=== PATIENT | female | born 1955 | race Hispanic/Latino ===

== ENCOUNTER 2025-02-28 14:14 | Emergency (ER) | payer OTHER, SELFPAY ==
[2025-02-28 14:18] VITALS: BP 210/76
[2025-02-28 14:42] LABS: Hematocrit 40.4 % (37.0-47.0); Hemoglobin 13.1 g/dL (12.0-16.0); Mean Corp Hgb Conc. 32.4 g/dL (33.0-37.0); Mean Corpuscular Volume 85.6 fL (81.0-99.0); Nucleated Red Blood Cells % 0 %; Platelet Count 261 10^3/uL (130-400); Red Cell Dist. Width 12.8 % (11.5-14.5)
[2025-02-28 15:11] LABS: ALT (SGPT) 32 U/L (0-35); AST (SGOT) 36 U/L (14-36); Albumin 4.2 g/dl (3.5-5.0); Alkaline Phosphatase 104 U/L (38-126); Blood Urea Nitrogen 17 mg/dl (7-17); Calcium 9.4 mg/dl (8.4-10.2); Carbon Dioxide 28 mmol/L (22-30); Chloride 108 mmol/L (98-107); Glucose 141 mg/dl (70-99); Potassium 4.9 mmol/L (3.5-5.1); Sodium 141 mmol/L (135-145); Total Protein 7.5 g/dl (6.3-8.2); eGFR > 60.00
[2025-02-28 16:09] VITALS: BP 149/83
--- NOTE | 2025-02-28 17:02 | ED.GENMED ---
History of Present Illness
General
Chief Complaint: Blood Pressure Problem
Source: patient
Exam Limitations: none
Time Seen by Provider: 02/28/25 16:08
Nursing documentation reviewed up to this point in time: agreed with
History of Present Illness
History of Present Illness:
69-year-old female past medical history of previous stroke hypertension hyperlipidemia, diabetes presenting to the emergency department today with concerns of elevated blood pressure. Went to get an eye procedure done was found to have an elevated
blood pressure. She was primary care doctor and also had elevated blood pressure as well as T wave changes on EKG. Was then sent to the ER for further assessment she denies chest pain shortness of breath nausea vomiting at any point. Had a very
mild headache this morning. Has been taking her hydralazine and lisinopril as prescribed.
Review of Systems
Review of Systems
Allergies reviewed?: Yes
All Other Systems: ROS reviewed and negative except as documented in HPI and ROS
Phy Exam
Physical Exam
Physical Exam:
GENERAL: Alert , in no apparent distress
EYE: pupils equal and reactive
NECK: Supple, no significant adenopathy.
ENT: o/p clr, mmm.
CARDIAC: Regular rate and rhythm .
LUNGS: Clear breath sounds bilaterally, no acute respiratory distress, no wheezes/rales/rhonchi
ABDOMEN: Soft, without focal tenderness, no r/g, no cvat
NEUROLOGICAL: Alert and oriented, no focal neuro deficits 5 out of 5 upper and lower extremity strength normal sensation with palpating bilaterally normal finger-nose and [id number] no pronator drift
SKIN: Warm and dry, skin intact.
MUSCULOSKELETAL: No edema, well perfused.
PSYCH: Normal and appropriate interaction.
Course
Orders/Labs/Results
Orders:
Orders
02/28/25 14:25
EKG [Electrocardiogram (*1)] Urgent
Reason for Study: Hypertension, Benign
EKG- Treatment ONCE
02/28/25 14:32
CBC/With Diff [Complete Blood Count/With Diff] Urgent
CMP [Comprehensive Metabolic Panel] Urgent
02/28/25 16:44
Troponin I Urgent
Abnormal Lab Results
02/28/25
14:32
MCHC 32.4 L g/dL
(33.0-37.0)
Chloride 108 H mmol/L
(98-107)
Glucose 141 H mg/dl
(70-99)
02/28/25 14:32
02/28/25 14:32
Vital Signs
Initial and Last Documented VS:
Initial Vital Signs
Temp Pulse Resp BP Pulse Ox
97.9 F 53 15 210/76 99
02/28/25 14:18 02/28/25 14:18 02/28/25 14:18 02/28/25 14:18 02/28/25 14:18
Last Documented Vital Signs
Temp Pulse Resp BP Pulse Ox
97.9 F 79 30 149/83 99
02/28/25 14:18 02/28/25 16:09 02/28/25 16:09 02/28/25 16:09 02/28/25 17:03
MDM/Problems Addressed
MDM/Problems Addressed:
69-year-old female presenting to the emergency department today with concerns of elevated blood pressure. No chest pain shortness of breath nausea vomiting numbness weakness or diaphoresis at any point today. Does take hydralazine and lisinopril.
Blood pressure improved by the time that I saw the patient. Blood pressure in the 140s over 80s. Due to the EKG changes troponin was ordered. EKG is nonspecific with some T wave flattening but no obvious ischemic changes. Patient without
symptoms throughout ER stay. No signs of significant arrhythmia. Troponin was obtained which was normal to ensure nonspecific T wave changes did not represent acute changes. She was otherwise advised for close outpatient follow-up for blood
pressure control. Return precautions given.
*Pulse Oximetry
SaO2: 99
Oxygen Mode of Delivery: Room air
Patient hypoxic: no (99)
*Critical Care Note
Total Time (30-74mins, 75-104mins- exclusive of procedures): Not Applicable
ED Attending Note
-
Portions of this chart may have been created with voice recognition software.� Occasional wrong word or��sound alike� substitutions may have occurred due to the inherent limitations of voice recognition software.
Discharge Plan
Departure
Patient Disposition: Home (Routine Discharge)
Patient with high blood pressure during this ER visit?: Yes
Condition: Good
Covid-19: Not Applicable
Discharge Problem:
BP (high blood pressure)
Instructions: High Blood Pressure (DC)
Activity Restrictions/Additional Instructions:
You came to the emergency department today with concerns of high blood pressure. Here you had a reassuring assessment. Please follow close with the primary care doctor to have this monitored closely and potentially start new medications. Return
for any worsening, new or concerning symptoms.
Interventions
Interventions:
*Risk Screen - Suicide Last Done: 02/28/25 14:18
*General Assessment Last Done: 02/28/25 14:18
*Neglect/Abuse Screening Last Done: 02/28/25 14:18
*ED COVID-19 Vaccine History Last Done: 02/28/25 14:18
*Nursing Disposition Last Done: 02/28/25 14:15
ED- Cardiac Assessment Last Done: 02/28/25 16:00
ED- Neurological Assessment Last Done: 02/28/25 16:00
ED- Pulmonary Assessment Last Done: 02/28/25 16:00
Discharge Date and Time
Print Language: ISRAELI
[2025-02-28 17:24] LABS: Troponin I < 0.012 ng/ml
== END 2025-02-28 18:24 | disposition home or self-care (01) ==
LOC: EMR 14:14
PROVIDERS: Emergency Medicine; Physician Assistant; EMERGENCY PHYSICIAN Emergency Medicine; FAMILY PHYSICIAN Podiatrist Foot & Ankle Surgery
DX: I10 Essential (primary) hypertension (principal); R51.9 Headache, unspecified; E11.9 Type 2 diabetes mellitus without complications; E78.5 Hyperlipidemia, unspecified; Z86.73 Personal history of transient ischemic attack (TIA), and cerebral infarction without residual deficits; Z79.4 Long term (current) use of insulin
CPT/HCPCS: 99283; 80053; 84484; 85025; 93005